=== PATIENT | female | born 1970 | race Caucasian/White ===

== ENCOUNTER 2016-04-28 13:59 | Emergency (ER) | payer OTHER ==
[2016-04-28 14:46] VITALS: BP 122/76
[2016-04-28] MEDS ORDERED: BSS OPTH.SOL* BTL ONE (15:06)
[2016-04-28] MEDS ORDERED: Fluorescein Sodium TOPICAL* 1 MG TEST ONE (15:06)
[2016-04-28] MEDS ORDERED: Tetracaine 0.5% OPTH.SOL 15ML* BTL ONE (15:07)
--- NOTE | 2016-04-28 15:53 | UC ---
Eye Complaint HPI - HPI Summary HPI Summary: WEARS CONTACT LENSES, TWO DAYS OF LEFT EYE IRRITATION. ONE WEEK AGO UPPER RESPIRATORY SYMPTOMS. NO FEVER. - History of Current Complaint Chief Complaint: UCEye Stated Complaint: EYE COMPLAINT Time Seen by Provider: 04/28/16 14:52 Hx Obtained From: Patient Hx Last Menstrual Period: 04/17/16 Onset/Duration: Gradual Onset, Lasting Days, Still Present Severity Initially: Mild Severity Currently: Mild Pain Intensity: 0 Pain Scale Used: 0-10 Numeric Location of Injury: Conjunctiva - Allergies/Home Medications Allergies/Adverse Reactions: Allergies Allergy/AdvReac Type Severity Reaction Status Date / Time No Known Allergies Allergy Verified 04/28/16 14:39 Home Medications: Home Medications Lifitegrast [Xiidra] 5 % OP 04/28/16 [History] Multiple Vitamins W/ Minerals [Multivitamin Women] 04/28/16 [History] PMH/Surg Hx/FS Hx/Imm Hx Previously Healthy: Yes - Surgical History Surgical History: None - Family History Known Family History: Negative: Diabetes - Social History Occupation: Employed Full-time Lives: With Family Alcohol Use: Daily Alcohol Amount: 1-2 glasses of wine per week. Substance Use Type: None Smoking Status (MU): Never Smoked Tobacco Have You Smoked in the Last Year: No Review of Systems Constitutional: Negative Skin: Negative Eyes: Eye Redness ENT: Negative Respiratory: Negative Cardiovascular: Negative Gastrointestinal: Negative Genitourinary: Negative Motor: Negative Neurovascular: Negative Musculoskeletal: Negative Neurological: Negative Psychological: Negative All Other Systems Reviewed And Are Negative: Yes Physical Exam Triage Information Reviewed: Yes Appearance: Well-Appearing, No Pain Distress, Well-Nourished Vital Signs: Initial Vital Signs Temp 97.4 F 04/28/16 14:40 Pulse 54 04/28/16 14:40 Resp 16 04/28/16 14:40 BP 122/76 04/28/16 14:40 Pulse Ox 100 04/28/16 14:40 Vital Signs Reviewed: Yes Eyes: Positive: Conjunctiva Inflamed - LEFT, Other: - FLUORESCEIN UPTAKE 9 OCLOCK TO 3 OCLOCK ENT Exam: Normal ENT: Positive: Normal ENT inspection, Hearing grossly normal, Pharynx normal, TMs normal Dental Exam: Normal Neck exam: Normal Neck: Positive: Supple, Nontender Respiratory Exam: Normal Respiratory: Positive: Chest non-tender, Lungs clear, Normal breath sounds, No respiratory distress, No accessory muscle use Cardiovascular Exam: Normal Cardiovascular: Positive: RRR, No Murmur Abdominal Exam: Normal Abdomen Description: Positive: Nontender, No Organomegaly Musculoskeletal Exam: Normal Neurological Exam: Normal Psychological Exam: Normal Psychological: Positive: Normal Response To Family Skin Exam: Normal Eye Complaint Course/Dx - Differential Dx/Diagnosis Differential Diagnosis/HQI/PQRI: Conjunctivitis, Corneal Abrasion Provider Diagnoses: LEFT CORNEAL ABRASION. CONJUNCTIVITIS Discharge - Discharge Plan Condition: Stable Disposition: HOME Prescriptions: Polymyx/Trimethoprim OPTH* [Polytrim OPHTH*] 1 drop LEFT EYE Q3H #1 btl Patient Education Materials: Corneal Abrasion (ED), Conjunctivitis (ED) Referrals: Wesley Raygoza MD [Primary Care Provider] -
== END 2016-04-28 15:31 | disposition home or self-care (01) ==
LOC: UCEAST 13:59
DX: H18.822 Corneal disorder due to contact lens, left eye (principal); H10.32 Unspecified acute conjunctivitis, left eye
CPT/HCPCS: 99202; A9270-GY; G0463